=== PATIENT | female | born 1965 | race African-American/Black ===

== ENCOUNTER 2019-06-05 08:33 | Inpatient (IN) | payer OTHER ==
[~2019-06-05] VITALS: Ht 162.6 cm; Wt 70.5 kg
[~2019-06-05 08:33] MED LIST: AZIT250T9 PO; DARU400T PO; GABA-531 PO; IBUP-2070 PO; LISI-662 PO; METO25 PO; RITO100T PO
[2019-06-05] MEDS ORDERED: SODIUM CHLORIDE 0.9% 1,000 ML IV ONE ×2 (09:15→10:00)
[2019-06-05] MEDS ORDERED: ACETAMINOPHEN 500 MG TABLET PO ONE (09:15)
[2019-06-05] MEDS ORDERED: IBUPROFEN 600 MG TABLET PO ONE (09:15)
[2019-06-05 09:35] LABS: BASOPHILS % (AUTO) 0.5 % (0.0-2.0); EOSINOPHILS % (AUTO) 0.3 % (1.0-6.0); HEMATOCRIT 39.3 % (36-46); HEMOGLOBIN 12.9 g/dL (12.0-16.0); LYMPHOCYTES # (AUTO) 1.3 K/uL (1.0-4.8); LYMPHOCYTES % (AUTO) 17.4 % (22.0-44.0); MEAN CORPUSCULAR HEMOGLOBIN 29.9 pg (26.0-34.0); MEAN CORPUSCULAR HGB CONC 32.8 G/dL (31.0-37.0); MEAN CORPUSCULAR VOLUME 91 fL (80-100); MONOCYTES # (AUTO) 0.5 K/uL (0.1-1.0); MONOCYTES % (AUTO) 7.5 % (2.0-9.0); NEUTROPHILS # (AUTO) 5.4 K/uL (1.8-7.7); NEUTROPHILS % (AUTO) 74.3 % (40.0-70.0); PLATELET COUNT (AUTO) 165 K/uL (150-450); RED BLOOD CELL COUNT(AUTO) 4.31 MIL/uL (4.00-5.20)
[2019-06-05 09:44] LABS: ANION GAP 8 mmol/L (8-16); CALCIUM, TOTAL 8.4 mg/dL (8.8-10.5); CARBON DIOXIDE 29 mmol/L (22-29); CHLORIDE 97 mmol/L (98-107); CREATININE 1.11 mg/dL (0.60-1.30); GLOMERULAR FILTR. RATE CALC > 60 mL/min (>60); GLUCOSE,RANDOM 213 mg/dL (70-110); POTASSIUM 3.9 mmol/L (3.5-5.1); SODIUM SERUM 134 mmol/L (136-145); UREA NITROGEN, BLOOD 9 mg/dL (7-18)
[2019-06-05 09:55] LABS: LACTIC ACID 2.6 mmol/L (0.4-2.0)
[2019-06-05] MEDS ORDERED: AZITHROMYCIN 500 MG/NS 250 ML IV ONE (10:00)
[2019-06-05] MEDS ORDERED: CefTRIAXone 1 GM/DEXTROSE 50 ML IV ONE (10:00)
[2019-06-05] MEDS ORDERED: ACETAMINOPHEN 325 MG TABLET PO PRN (10:15)
[2019-06-05] MEDS ORDERED: SODIUM CHLORIDE 0.9% 500 ML IV ONE (10:15)
[2019-06-05] MEDS ORDERED: ONDANSETRON HCL 4 MG/2 ML VIAL IVP PRN (10:15)
[2019-06-05 10:36] LABS: INFLUENZA TYPE A NEGATIVE FOR TYPE A (NEGATIVE); INFLUENZA TYPE B NEGATIVE FOR TYPE B (NEGATIVE)
[2019-06-05 11:46] LABS: APPEARANCE,URINE CLEAR (CLEAR); BILIRUBIN,URINE NEGATIVE (NEGATIVE); GLUCOSE, URINE (UA) 100 mg/dL (NEGATIVE); KETONES,URINE NEGATIVE (NEGATIVE); LEUKOCYTE ESTERASE ,URINE NEGATIVE (NEGATIVE); NITRATE,URINE NEGATIVE (NEGATIVE); OCCULT BLOOD,URINE NEGATIVE (NEGATIVE); PH,URINE 6.5 (5.0-8.0); PROTEIN,URINE NEGATIVE (NEGATIVE); UROBILINOGEN,URINE 0.2 mg/dL (<=1.0)
[2019-06-05 11:54] LABS: BACTERIA,URINE None Seen /HPF (None Seen); RBC,URINE None Seen /HPF (0-2); SQUAMOUS EPITHELIAL CELL,UR Few /LPF (None Seen); WBC,URINE None Seen /HPF (0-5)
[2019-06-05] MEDS ORDERED: HydrALAZINE HCL 25 MG TABLET PO PRN (18:30)
[2019-06-05 21:00] VITALS: BP 160/99
[2019-06-05 23:38] VITALS: BP 151/97
[2019-06-06] MEDS ORDERED: IBUPROFEN 600 MG TABLET PO PRN (01:00)
[2019-06-06] MEDS ORDERED: MAGNESIUM HYDROXIDE SUSPENSION 30 ML UDCUP PO PRN (01:00)
[2019-06-06] MEDS ORDERED: *CLINICAL-LEVOFLOXACIN IVPB DOSING CLINICAL ONE (01:00)
[2019-06-06] MEDS ORDERED: ONDANSETRON HCL 4 MG/2 ML VIAL IVP PRN (01:00)
[2019-06-06] MEDS ORDERED: 0.9% SODIUM CHLORIDE 10 ML SYRINGE IVP PRN (01:00)
[2019-06-06] MEDS ORDERED: OxyCODONE HCL/ACETAMINOPHEN 5-325 MG TABLET PO PRN (01:00)
[2019-06-06] MEDS ORDERED: LEVOFLOXACIN 500 MG/D5% WATER 100 ML IV SCH (02:00)
[2019-06-06] MEDS ORDERED: 0.9% SODIUM CHLORIDE 5 ML NEB SOLUTION NEB ONE ×2 (02:52→10:57)
[2019-06-06] MEDS: IPRATROPIUM BROMIDE 0.5 MG/2.5 ML NEB SOLUTION NEB SCH ×6 (02:58→22:46)
[2019-06-06] MEDS: ALBUTEROL SULFATE 2.5 MG/0.5 ML NEB SOLUTION NEB SCH ×6 (02:58→22:46)
[2019-06-06 04:19] VITALS: BP 162/107
[2019-06-06] MEDS: HydrALAZINE HCL 25 MG TABLET PO PRN ×2 (04:41→18:31)
[2019-06-06] MEDS: OxyCODONE HCL/ACETAMINOPHEN 5-325 MG TABLET PO PRN (04:41)
[2019-06-06 07:56] VITALS: BP 132/88
[2019-06-06] MEDS ORDERED: DARUNAVIR ETHANOLATE 800 MG TABLET PO SCH (09:00)
[2019-06-06] MEDS ORDERED: RITONAVIR 100 MG TABLET PO SCH (09:00)
[2019-06-06] MEDS ORDERED: FAMOTIDINE 10 MG/ML 2 ML VIAL IVP SCH (09:00)
[2019-06-06] MEDS: GABAPENTIN 300 MG CAPSULE PO SCH ×2 (09:47→21:38)
[2019-06-06] MEDS: LISINOPRIL 20 MG TABLET PO SCH (09:47)
[2019-06-06] MEDS: METOPROLOL TARTRATE 25 MG TABLET PO SCH ×2 (09:47→21:38)
[2019-06-06] MEDS: DOCUSATE SODIUM 100 MG CAPSULE PO SCH ×2 (09:47→21:38)
[2019-06-06] MEDS: FAMOTIDINE 10 MG/ML 2 ML VIAL IVP SCH (09:48)
[2019-06-06] MEDS: CefTRIAXone 1 GM/DEXTROSE 50 ML IV SCH (10:34)
[2019-06-06 11:32] VITALS: BP 151/102
[2019-06-06] MEDS ORDERED: SODIUM CHLORIDE 0.9% 250 ML IV ONE (17:17)
[2019-06-06] MEDS: AZITHROMYCIN 500 MG/NS 250 ML IV SCH (17:35)
[2019-06-06 18:20] VITALS: BP 165/114
[2019-06-06] MEDS: ACETAMINOPHEN 325 MG TABLET PO PRN (18:30)
[2019-06-06 20:05] VITALS: BP 144/89
[2019-06-07 00:03] VITALS: BP 126/92
[2019-06-07] MEDS: ACETAMINOPHEN 325 MG TABLET PO PRN ×2 (00:17→14:03)
[2019-06-07] MEDS: ALBUTEROL SULFATE 2.5 MG/0.5 ML NEB SOLUTION NEB SCH ×6 (02:43→23:31)
[2019-06-07] MEDS: IPRATROPIUM BROMIDE 0.5 MG/2.5 ML NEB SOLUTION NEB SCH ×6 (02:43→23:31)
[2019-06-07 04:50] VITALS: BP 127/89
[2019-06-07 06:43] LABS: BASOPHILS % (AUTO) 0.5 % (0.0-2.0); EOSINOPHILS % (AUTO) 2.9 % (1.0-6.0); HEMATOCRIT 39.4 % (36-46); HEMOGLOBIN 13.1 g/dL (12.0-16.0); LYMPHOCYTES # (AUTO) 2.2 K/uL (1.0-4.8); LYMPHOCYTES % (AUTO) 40.9 % (22.0-44.0); MEAN CORPUSCULAR HEMOGLOBIN 30.1 pg (26.0-34.0); MEAN CORPUSCULAR HGB CONC 33.3 G/dL (31.0-37.0); MEAN CORPUSCULAR VOLUME 90 fL (80-100); MONOCYTES # (AUTO) 0.6 K/uL (0.1-1.0); MONOCYTES % (AUTO) 11.6 % (2.0-9.0); NEUTROPHILS # (AUTO) 2.3 K/uL (1.8-7.7); NEUTROPHILS % (AUTO) 44.1 % (40.0-70.0); PLATELET COUNT (AUTO) 166 K/uL (150-450); RED BLOOD CELL COUNT(AUTO) 4.36 MIL/uL (4.00-5.20); RED CELL DISTRIBUTION WIDTH 13.7 % (11.5-14.5)
[2019-06-07 07:20] LABS: ALANINE AMINOTRANSFERASE 27 U/L (12-78); ALBUMIN 2.8 g/dL (3.4-5.0); ALKALINE PHOSPHATASE 83 U/L (46-116); ANION GAP 9 mmol/L (8-16); ASPARTATE AMINOTRANSFERASE 21 U/L (15-37); BILIRUBIN,TOTAL 0.3 mg/dL (0.1-1.0); CALCIUM, TOTAL 8.7 mg/dL (8.8-10.5); CARBON DIOXIDE 27 mmol/L (22-29); CHLORIDE 103 mmol/L (98-107); CREATININE 0.82 mg/dL (0.60-1.30); GLOMERULAR FILTR. RATE CALC > 60 mL/min (>60); GLUCOSE,RANDOM 97 mg/dL (70-110); POTASSIUM 3.8 mmol/L (3.5-5.1); SODIUM SERUM 139 mmol/L (136-145); TOTAL PROTEIN, SERUM 7.3 g/dL (6.4-8.2); UREA NITROGEN, BLOOD 11 mg/dL (7-18)
[2019-06-07 08:12] VITALS: BP 134/96
[2019-06-07] MEDS: LISINOPRIL 20 MG TABLET PO SCH (09:03)
[2019-06-07] MEDS: METOPROLOL TARTRATE 25 MG TABLET PO SCH ×2 (09:03→20:31)
[2019-06-07] MEDS: DOCUSATE SODIUM 100 MG CAPSULE PO SCH ×2 (09:04→20:26)
[2019-06-07] MEDS: FAMOTIDINE 10 MG/ML 2 ML VIAL IVP SCH (09:04)
[2019-06-07] MEDS: GABAPENTIN 300 MG CAPSULE PO SCH ×2 (09:04→20:31)
[2019-06-07] MEDS: CefTRIAXone 1 GM/DEXTROSE 50 ML IV SCH (10:32)
[2019-06-07 11:09] VITALS: BP 146/92
[2019-06-07] MEDS ORDERED: DARU800T PO (15:20)
[2019-06-07 15:37] VITALS: BP 134/93
[2019-06-07] MEDS: AZITHROMYCIN 500 MG/NS 250 ML IV SCH (16:41)
[2019-06-07 19:24] VITALS: BP 133/91
[2019-06-08] VITALS (7 sets, daily range): BP systolic 126–135; BP diastolic 85–92
[2019-06-08] MEDS: OxyCODONE HCL/ACETAMINOPHEN 5-325 MG TABLET PO PRN (00:10)
[2019-06-08] MEDS: IPRATROPIUM BROMIDE 0.5 MG/2.5 ML NEB SOLUTION NEB SCH ×6 (03:01→23:18)
[2019-06-08] MEDS: ALBUTEROL SULFATE 2.5 MG/0.5 ML NEB SOLUTION NEB SCH ×6 (03:01→23:18)
[2019-06-08] MEDS: GABAPENTIN 300 MG CAPSULE PO SCH ×2 (09:15→20:24)
[2019-06-08] MEDS: METOPROLOL TARTRATE 25 MG TABLET PO SCH ×2 (09:15→20:23)
[2019-06-08] MEDS: CefTRIAXone 1 GM/DEXTROSE 50 ML IV SCH (09:15)
[2019-06-08] MEDS: LISINOPRIL 20 MG TABLET PO SCH (09:15)
[2019-06-08] MEDS: FAMOTIDINE 10 MG/ML 2 ML VIAL IVP SCH (09:15)
[2019-06-08] MEDS: DOCUSATE SODIUM 100 MG CAPSULE PO SCH ×2 (09:15→20:24)
[2019-06-08] MEDS ORDERED: *PATIENT'S OWN MED [ENTER DRUG, DOSE, FREQUENCY IN COMMENTS] CLINICAL ONE (11:00)
[2019-06-08] MEDS ORDERED: BICTEGRAV/EMTRICIT/TENOFOV ALA 50-200-25 MG TABLET PO SCH (13:00)
[2019-06-08] MEDS: AZITHROMYCIN 500 MG/NS 250 ML IV SCH (16:43)
[2019-06-08] MEDS: BICTEGRAV/EMTRICIT/TENOFOV ALA 50-200-25 MG TABLET PO SCH (20:24)
[2019-06-09 00:43] VITALS: BP 127/81
[2019-06-09] MEDS: ALBUTEROL SULFATE 2.5 MG/0.5 ML NEB SOLUTION NEB SCH ×6 (03:00→23:00)
[2019-06-09] MEDS: IPRATROPIUM BROMIDE 0.5 MG/2.5 ML NEB SOLUTION NEB SCH ×6 (03:00→23:00)
[2019-06-09 04:21] VITALS: BP 134/91
[2019-06-09 07:40] VITALS: BP 137/100
[2019-06-09] MEDS: DOCUSATE SODIUM 100 MG CAPSULE PO SCH ×2 (09:42→20:32)
[2019-06-09] MEDS: GABAPENTIN 300 MG CAPSULE PO SCH ×2 (09:42→20:32)
[2019-06-09] MEDS: METOPROLOL TARTRATE 25 MG TABLET PO SCH ×2 (09:42→20:32)
[2019-06-09] MEDS: FAMOTIDINE 10 MG/ML 2 ML VIAL IVP SCH (09:42)
[2019-06-09] MEDS: LISINOPRIL 20 MG TABLET PO SCH (09:42)
[2019-06-09] MEDS: CefTRIAXone 1 GM/DEXTROSE 50 ML IV SCH (09:43)
[2019-06-09 11:18] VITALS: BP 142/89
[2019-06-09 16:35] VITALS: BP 145/90
[2019-06-09] MEDS: AZITHROMYCIN 500 MG/NS 250 ML IV SCH (16:59)
[2019-06-09] MEDS: BICTEGRAV/EMTRICIT/TENOFOV ALA 50-200-25 MG TABLET PO SCH (20:35)
[2019-06-09 20:59] VITALS: BP 132/87
[2019-06-10] MEDS: IPRATROPIUM BROMIDE 0.5 MG/2.5 ML NEB SOLUTION NEB SCH ×6 (02:31→23:00)
[2019-06-10] MEDS: ALBUTEROL SULFATE 2.5 MG/0.5 ML NEB SOLUTION NEB SCH ×6 (02:31→23:00)
[2019-06-10 03:50] VITALS: BP 136/86
[2019-06-10 06:16] LABS: BASOPHILS % (AUTO) 0.6 % (0.0-2.0); EOSINOPHILS % (AUTO) 2.4 % (1.0-6.0); HEMATOCRIT 37.1 % (36-46); HEMOGLOBIN 12.4 g/dL (12.0-16.0); LYMPHOCYTES # (AUTO) 2.9 K/uL (1.0-4.8); LYMPHOCYTES % (AUTO) 46.1 % (22.0-44.0); MEAN CORPUSCULAR HEMOGLOBIN 30.1 pg (26.0-34.0); MEAN CORPUSCULAR HGB CONC 33.3 G/dL (31.0-37.0); MEAN CORPUSCULAR VOLUME 90 fL (80-100); MONOCYTES # (AUTO) 0.6 K/uL (0.1-1.0); MONOCYTES % (AUTO) 9.5 % (2.0-9.0); NEUTROPHILS # (AUTO) 2.6 K/uL (1.8-7.7); NEUTROPHILS % (AUTO) 41.4 % (40.0-70.0); PLATELET COUNT (AUTO) 242 K/uL (150-450); RED BLOOD CELL COUNT(AUTO) 4.11 MIL/uL (4.00-5.20); RED CELL DISTRIBUTION WIDTH 13.7 % (11.5-14.5)
[2019-06-10 06:34] LABS: ANION GAP 7 mmol/L (8-16); CARBON DIOXIDE 28 mmol/L (22-29); CHLORIDE 105 mmol/L (98-107); GLOMERULAR FILTR. RATE CALC > 60 mL/min (>60); GLUCOSE,RANDOM 108 mg/dL (70-110); POTASSIUM 4.1 mmol/L (3.5-5.1); SODIUM SERUM 140 mmol/L (136-145); UREA NITROGEN, BLOOD 14 mg/dL (7-18)
[2019-06-10] MEDS: LISINOPRIL 20 MG TABLET PO SCH (08:21)
[2019-06-10] MEDS: METOPROLOL TARTRATE 25 MG TABLET PO SCH ×2 (08:22→20:10)
[2019-06-10] MEDS: DOCUSATE SODIUM 100 MG CAPSULE PO SCH ×2 (08:23→20:10)
[2019-06-10] MEDS: GABAPENTIN 300 MG CAPSULE PO SCH ×2 (08:23→20:10)
[2019-06-10] MEDS: FAMOTIDINE 10 MG/ML 2 ML VIAL IVP SCH (08:23)
[2019-06-10 08:33] VITALS: BP 156/104
[2019-06-10] MEDS: CefTRIAXone 1 GM/DEXTROSE 50 ML IV SCH (10:36)
[2019-06-10 13:06] LABS: ORGANISM ID Not indicated.; S PNEUMO SOURCE Urine; STREP PNEUMONIAE AG URINE Negative (Negative); STREP.PNEUMO BODY FLUID CULT. Not indicated.
[2019-06-10] MEDS: CefoTEtan DISOD 2 GM/DEXTROSE 50 ML IV SCH (16:52)
[2019-06-10 17:08] VITALS: BP 139/78
[2019-06-10 19:09] VITALS: BP 142/85
[2019-06-10] MEDS: BICTEGRAV/EMTRICIT/TENOFOV ALA 50-200-25 MG TABLET PO SCH (20:09)
[2019-06-10 23:10] VITALS: BP 138/71
[2019-06-11] MEDS: ALBUTEROL SULFATE 2.5 MG/0.5 ML NEB SOLUTION NEB SCH ×6 (03:00→23:41)
[2019-06-11] MEDS: IPRATROPIUM BROMIDE 0.5 MG/2.5 ML NEB SOLUTION NEB SCH ×6 (03:00→23:41)
[2019-06-11] MEDS: CefoTEtan DISOD 2 GM/DEXTROSE 50 ML IV SCH ×2 (03:51→16:55)
[2019-06-11 06:35] LABS: BASOPHILS % (AUTO) 0.7 % (0.0-2.0); EOSINOPHILS % (AUTO) 2.1 % (1.0-6.0); HEMATOCRIT 38.5 % (36-46); HEMOGLOBIN 12.8 g/dL (12.0-16.0); LYMPHOCYTES % (AUTO) 42.8 % (22.0-44.0); MEAN CORPUSCULAR HEMOGLOBIN 29.9 pg (26.0-34.0); MEAN CORPUSCULAR HGB CONC 33.2 G/dL (31.0-37.0); MEAN CORPUSCULAR VOLUME 90 fL (80-100); MONOCYTES # (AUTO) 0.6 K/uL (0.1-1.0); NEUTROPHILS # (AUTO) 3.2 K/uL (1.8-7.7); NEUTROPHILS % (AUTO) 46.4 % (40.0-70.0); PLATELET COUNT (AUTO) 261 K/uL (150-450); RED BLOOD CELL COUNT(AUTO) 4.28 MIL/uL (4.00-5.20); RED CELL DISTRIBUTION WIDTH 13.8 % (11.5-14.5)
[2019-06-11 07:10] LABS: CALCIUM, TOTAL 8.5 mg/dL (8.8-10.5); CREATININE 1.19 mg/dL (0.60-1.30)
[2019-06-11 07:53] VITALS: BP 154/91
[2019-06-11] MEDS: DOCUSATE SODIUM 100 MG CAPSULE PO SCH ×2 (09:00→20:21)
[2019-06-11] MEDS: FAMOTIDINE 10 MG/ML 2 ML VIAL IVP SCH (09:01)
[2019-06-11] MEDS: LISINOPRIL 20 MG TABLET PO SCH (09:01)
[2019-06-11] MEDS: GABAPENTIN 300 MG CAPSULE PO SCH ×2 (09:01→20:20)
[2019-06-11] MEDS: METOPROLOL TARTRATE 25 MG TABLET PO SCH ×2 (09:02→20:20)
[2019-06-11 10:41] LABS: LEGIONELLA PNEUMO AG URINE Negative (Negative)
[2019-06-11 11:10] VITALS: BP 142/84
[2019-06-11 17:32] VITALS: BP 146/100
[2019-06-11] MEDS: BICTEGRAV/EMTRICIT/TENOFOV ALA 50-200-25 MG TABLET PO SCH (20:22)
[2019-06-11 21:08] VITALS: BP 141/119
[2019-06-11 23:29] VITALS: BP 144/107
[2019-06-12] MEDS: IPRATROPIUM BROMIDE 0.5 MG/2.5 ML NEB SOLUTION NEB SCH ×3 (03:00→11:00)
[2019-06-12] MEDS: ALBUTEROL SULFATE 2.5 MG/0.5 ML NEB SOLUTION NEB SCH ×3 (03:00→11:00)
[2019-06-12] MEDS: CefoTEtan DISOD 2 GM/DEXTROSE 50 ML IV SCH ×2 (03:53→16:33)
[2019-06-12 04:08] VITALS: BP 138/107
[2019-06-12] MEDS ORDERED: SODIUM CHLORIDE 0.9% 1,000 ML ONE (04:09)
[2019-06-12 08:15] VITALS: BP 139/101
[2019-06-12] MEDS: GABAPENTIN 300 MG CAPSULE PO SCH ×2 (08:33→21:50)
[2019-06-12] MEDS: DOCUSATE SODIUM 100 MG CAPSULE PO SCH ×2 (08:34→21:50)
[2019-06-12] MEDS: LISINOPRIL 20 MG TABLET PO SCH (08:34)
[2019-06-12] MEDS: METOPROLOL TARTRATE 25 MG TABLET PO SCH ×2 (08:34→21:50)
[2019-06-12] MEDS: FAMOTIDINE 10 MG/ML 2 ML VIAL IVP SCH (08:34)
[2019-06-12 11:50] VITALS: BP 157/107
[2019-06-12] MEDS ORDERED: ALBUTEROL SULFATE 2.5 MG/0.5 ML NEB SOLUTION NEB PRN (13:00)
[2019-06-12] MEDS ORDERED: IPRATROPIUM BROMIDE 0.5 MG/2.5 ML NEB SOLUTION NEB PRN (13:00)
[2019-06-12 20:18] VITALS: BP 153/97
[2019-06-12] MEDS: BICTEGRAV/EMTRICIT/TENOFOV ALA 50-200-25 MG TABLET PO SCH (21:50)
[2019-06-12] MEDS: NICOTINE 21 MG/24 HOUR PATCH TD SCH (23:58)
[2019-06-13 00:33] VITALS: BP 146/92
[2019-06-13] MEDS: CefoTEtan DISOD 2 GM/DEXTROSE 50 ML IV SCH ×2 (04:01→17:24)
[2019-06-13 04:13] VITALS: BP 148/85
[2019-06-13 07:30] VITALS: BP 150/96
[2019-06-13] MEDS: LISINOPRIL 20 MG TABLET PO SCH (08:56)
[2019-06-13] MEDS: FAMOTIDINE 10 MG/ML 2 ML VIAL IVP SCH (08:56)
[2019-06-13] MEDS: METOPROLOL TARTRATE 25 MG TABLET PO SCH ×2 (08:56→20:32)
[2019-06-13] MEDS: DOCUSATE SODIUM 100 MG CAPSULE PO SCH ×2 (08:56→20:32)
[2019-06-13] MEDS: GABAPENTIN 300 MG CAPSULE PO SCH ×2 (08:56→20:32)
[2019-06-13] MEDS: NICOTINE 21 MG/24 HOUR PATCH TD SCH (08:59)
[2019-06-13 09:32] LABS: BASOPHILS % (AUTO) 0.5 % (0.0-2.0); EOSINOPHILS % (AUTO) 2.3 % (1.0-6.0); HEMOGLOBIN 12.9 g/dL (12.0-16.0); LYMPHOCYTES # (AUTO) 2.8 K/uL (1.0-4.8); LYMPHOCYTES % (AUTO) 34.9 % (22.0-44.0); MEAN CORPUSCULAR HEMOGLOBIN 30.6 pg (26.0-34.0); MEAN CORPUSCULAR HGB CONC 33.9 G/dL (31.0-37.0); MEAN CORPUSCULAR VOLUME 90 fL (80-100); MONOCYTES # (AUTO) 0.6 K/uL (0.1-1.0); MONOCYTES % (AUTO) 7.1 % (2.0-9.0); NEUTROPHILS # (AUTO) 4.4 K/uL (1.8-7.7); NEUTROPHILS % (AUTO) 55.2 % (40.0-70.0); PLATELET COUNT (AUTO) 333 K/uL (150-450); RED CELL DISTRIBUTION WIDTH 13.8 % (11.5-14.5)
[2019-06-13 09:36] LABS: ANION GAP 7 mmol/L (8-16); CALCIUM, TOTAL 8.7 mg/dL (8.8-10.5); CARBON DIOXIDE 28 mmol/L (22-29); CHLORIDE 107 mmol/L (98-107); CREATININE 1.06 mg/dL (0.60-1.30); GLOMERULAR FILTR. RATE CALC > 60 mL/min (>60); GLUCOSE,RANDOM 96 mg/dL (70-110); POTASSIUM 4.5 mmol/L (3.5-5.1); SODIUM SERUM 142 mmol/L (136-145); UREA NITROGEN, BLOOD 19 mg/dL (7-18)
[2019-06-13 12:06] VITALS: BP 152/88
[2019-06-13 20:30] VITALS: BP 144/102
[2019-06-13] MEDS: BICTEGRAV/EMTRICIT/TENOFOV ALA 50-200-25 MG TABLET PO SCH (20:32)
[2019-06-14 00:58] VITALS: BP 151/99
[2019-06-14] MEDS: CefoTEtan DISOD 2 GM/DEXTROSE 50 ML IV SCH (04:00)
[2019-06-14 05:13] VITALS: BP 153/101
[2019-06-14 08:00] VITALS: BP 133/88
[2019-06-14] MEDS: NICOTINE 21 MG/24 HOUR PATCH TD SCH (08:28)
[2019-06-14] MEDS: LISINOPRIL 20 MG TABLET PO SCH (08:29)
[2019-06-14] MEDS: METOPROLOL TARTRATE 25 MG TABLET PO SCH ×2 (08:29→21:16)
[2019-06-14] MEDS: GABAPENTIN 300 MG CAPSULE PO SCH ×2 (08:29→21:16)
[2019-06-14] MEDS: DOCUSATE SODIUM 100 MG CAPSULE PO SCH ×2 (08:29→21:15)
[2019-06-14] MEDS: FAMOTIDINE 10 MG/ML 2 ML VIAL IVP SCH (08:30)
[2019-06-14 12:29] VITALS: BP 151/93
[2019-06-14] MEDS: AMOX TR/POT CLAV 875 MG/125 MG TABLET PO SCH ×2 (15:42→21:14)
[2019-06-14 16:17] VITALS: BP 134/101
[2019-06-14 20:33] VITALS: BP 134/97
[2019-06-14] MEDS: BICTEGRAV/EMTRICIT/TENOFOV ALA 50-200-25 MG TABLET PO SCH (21:15)
[2019-06-15 00:06] VITALS: BP 143/97
[2019-06-15 04:13] VITALS: BP 140/87
[2019-06-15 06:57] LABS: EOSINOPHILS % (AUTO) 1.3 % (1.0-6.0); HEMATOCRIT 37.5 % (36-46); HEMOGLOBIN 12.6 g/dL (12.0-16.0); LYMPHOCYTES # (AUTO) 2.7 K/uL (1.0-4.8); LYMPHOCYTES % (AUTO) 34.5 % (22.0-44.0); MEAN CORPUSCULAR HEMOGLOBIN 30.3 pg (26.0-34.0); MEAN CORPUSCULAR HGB CONC 33.6 G/dL (31.0-37.0); MEAN CORPUSCULAR VOLUME 90 fL (80-100); MONOCYTES # (AUTO) 0.8 K/uL (0.1-1.0); MONOCYTES % (AUTO) 10.2 % (2.0-9.0); NEUTROPHILS # (AUTO) 4.2 K/uL (1.8-7.7); PLATELET COUNT (AUTO) 336 K/uL (150-450); RED BLOOD CELL COUNT(AUTO) 4.16 MIL/uL (4.00-5.20); RED CELL DISTRIBUTION WIDTH 13.7 % (11.5-14.5)
[2019-06-15 07:15] LABS: ANION GAP 6 mmol/L (8-16); CALCIUM, TOTAL 8.8 mg/dL (8.8-10.5); CARBON DIOXIDE 28 mmol/L (22-29); CHLORIDE 106 mmol/L (98-107); CREATININE 1.07 mg/dL (0.60-1.30); GLOMERULAR FILTR. RATE CALC > 60 mL/min (>60); GLUCOSE,RANDOM 74 mg/dL (70-110); POTASSIUM 4.4 mmol/L (3.5-5.1); SODIUM SERUM 140 mmol/L (136-145); UREA NITROGEN, BLOOD 20 mg/dL (7-18)
[2019-06-15 08:38] VITALS: BP 138/90
[2019-06-15] MEDS: FAMOTIDINE 10 MG/ML 2 ML VIAL IVP SCH (09:00)
[2019-06-15] MEDS: DOCUSATE SODIUM 100 MG CAPSULE PO SCH (09:00)
[2019-06-15] MEDS: NICOTINE 21 MG/24 HOUR PATCH TD SCH (09:00)
[2019-06-15] MEDS: GABAPENTIN 300 MG CAPSULE PO SCH (09:54)
[2019-06-15] MEDS: LISINOPRIL 20 MG TABLET PO SCH (09:54)
[2019-06-15] MEDS: AMOX TR/POT CLAV 875 MG/125 MG TABLET PO SCH (09:54)
[2019-06-15] MEDS: METOPROLOL TARTRATE 25 MG TABLET PO SCH (09:54)
[2019-06-15 11:49] VITALS: BP 137/98
[2019-06-15] MEDS ORDERED: AMOX1TAB16 PO (12:55)
== END 2019-06-15 17:25 | disposition left against medical advice (07) | DRG 720 ==
LOC: EMS 08:35 → 6N 18:01 → 5N 06-06 16:17
PROVIDERS: ADMIT Internal Medicine; ATTEND Internal Medicine
DX: A41.9 Sepsis, unspecified organism (principal); J18.9 Pneumonia, unspecified organism; E44.0 Moderate protein-calorie malnutrition; E87.2 Acidosis; I50.9 Heart failure, unspecified; E87.1 Hypo-osmolality and hyponatremia; B96.20 Unspecified Escherichia coli [E. coli] as the cause of diseases classified elsewhere; Z53.29 Procedure and treatment not carried out because of patient's decision for other reasons; F31.9 Bipolar disorder, unspecified; Z16.12 Extended spectrum beta lactamase (ESBL) resistance; J45.909 Unspecified asthma, uncomplicated; F17.210 Nicotine dependence, cigarettes, uncomplicated; Z53.20 Procedure and treatment not carried out because of patient's decision for unspecified reasons; Z86.11 Personal history of tuberculosis; Z86.61 Personal history of infections of the central nervous system; Z87.01 Personal history of pneumonia (recurrent); Z90.710 Acquired absence of both cervix and uterus; Z79.899 Other long term (current) drug therapy; Z68.26 Body mass index [BMI] 26.0-26.9, adult
CPT/HCPCS: 71250; 83605; 84145; 86171; 86361; 86738; 87015; 87040; 87070; 87205; 87206; 87449; 87536; 87556; 87798; 87804; 87899; 94640; J0456; J0696; J1956; J3490; J7030; J7040; J7050

== ENCOUNTER 2020-08-30 07:09 | Emergency (ER) | payer OTHER ==
[~2020-08-30] VITALS: Ht 162.6 cm; Wt 77.3 kg
[~2020-08-30 07:09] MED LIST changes: +AMOX1TAB16 PO; -AZIT250T9 PO; -DARU400T PO; +DARU800T PO; -LISI-662 PO; +LISI-894 PO
[2020-08-30 08:08] LABS: BASOPHILS % (AUTO) 0.4 % (0.0-2.0); EOSINOPHILS % (AUTO) 0.8 % (1.0-6.0); HEMATOCRIT 36.6 % (36-46); HEMOGLOBIN 11.9 g/dL (12.0-16.0); LYMPHOCYTES # (AUTO) 1.6 K/uL (1.0-4.8); LYMPHOCYTES % (AUTO) 15.9 % (22.0-44.0); MEAN CORPUSCULAR HEMOGLOBIN 29.1 pg (26.0-34.0); MEAN CORPUSCULAR HGB CONC 32.6 G/dL (31.0-37.0); MEAN CORPUSCULAR VOLUME 89 fL (80-100); MONOCYTES # (AUTO) 0.8 K/uL (0.1-1.0); MONOCYTES % (AUTO) 7.8 % (2.0-9.0); NEUTROPHILS # (AUTO) 7.7 K/uL (1.8-7.7); NEUTROPHILS % (AUTO) 75.1 % (40.0-70.0); PLATELET COUNT (AUTO) 213 K/uL (150-450); RED BLOOD CELL COUNT(AUTO) 4.11 MIL/uL (4.00-5.20); RED CELL DISTRIBUTION WIDTH 14.7 % (11.5-14.5)
[2020-08-30 08:17] LABS: CALCIUM, TOTAL 8.5 mg/dL (8.8-10.5); CREATININE 1.13 mg/dL (0.60-1.30); POTASSIUM 3.5 mmol/L (3.5-5.1)
[2020-08-30 08:41] LABS: ALBUMIN 3.5 g/dL (3.4-5.0); BILIRUBIN,TOTAL 0.7 mg/dL (0.1-1.0); TOTAL PROTEIN, SERUM 7.7 g/dL (6.4-8.2)
[2020-08-30 09:06] VITALS: BP 166/115
[2020-08-30] MEDS ORDERED: DOXYCYCLINE HYCLATE 100 MG TABLET PO ONE (09:15)
[2020-08-30 09:17] LABS: COVID AG,FIA SOURCE NASOPHARYNGEAL
[2020-08-30] MEDS ORDERED: METOPROLOL TARTRATE 25 MG TABLET PO ONE (10:00)
== END 2020-08-30 10:46 | disposition home or self-care (01) ==
LOC: EMS 07:10
DX: J18.9 Pneumonia, unspecified organism (principal); I11.0 Hypertensive heart disease with heart failure; I50.9 Heart failure, unspecified; J45.909 Unspecified asthma, uncomplicated; F31.9 Bipolar disorder, unspecified; F17.210 Nicotine dependence, cigarettes, uncomplicated; Z20.822 Contact with and (suspected) exposure to COVID-19; Z90.710 Acquired absence of both cervix and uterus; Z79.899 Other long term (current) drug therapy
CPT/HCPCS: 36415; 71045; 80053; 82550; 83615; 85025; 86360; 87040; 87426; 99284; C9803; U0003